=== PATIENT | female | born 1960 | race Caucasian/White ===

== ENCOUNTER 2023-03-04 07:52 | Outpatient (OUT) | payer MEDICARE, SELFPAY ==
[2023-03-04 08:44] LABS: Basophils Absolute Auto 0.1 10^3/uL (0.0-0.1); Basophils Percent Auto 1.3 % (0.2-2.0); Eosinophils Absolute Auto 0.2 10^3/uL (0.0-0.7); Eosinophils Percent Auto 3.6 % (0.9-7.0); Hematocrit 41.7 % (36.0-48.0); Hemoglobin 13.8 g/dL (12.0-16.0); Immature Granulocytes Abs Auto 0.02 10^3/uL (0.00-0.03); Immature Granulocytes Pct Auto 0.3 % (0.0-0.5); Lymphocytes Absolute Auto 1.5 10^3/uL (1.2-3.8); Lymphocytes Percent Auto 24.1 % (20.5-60.0); Mean Corpuscular HGB Conc 33.1 g/dL (29.9-35.2); Mean Corpuscular Hemoglobin 29.2 pg (26.7-34.0); Mean Corpuscular Volume 88.2 fL (81.0-99.0); Mean Platelet Volume 9.5 fL (9.5-13.5); Monocytes Absolute Auto 0.6 10^3/uL (0.3-0.8); Monocytes Percent Auto 9.2 % (1.7-12.0); Neutrophils Absolute Auto 3.7 10^3/uL (1.4-6.5); Neutrophils Percent Auto 61.5 % (43.0-75.0); Platelet Count 306 10^3/uL (150-450); Red Blood Count 4.73 10^6/uL (4.20-5.40); Red Cell Distribution Width 12.2 % (11.0-15.0); White Blood Count 6.1 10^3/uL (4.0-11.0)
== END 2023-03-04 07:53 | disposition home or self-care (01) ==
LOC: PST 07:53
PROVIDERS: Family Provider Family Medicine; PCP Family Medicine; Visit Provider Otolaryngology
DX: Z01.812 Encounter for preprocedural laboratory examination (principal); H65.92 Unspecified nonsuppurative otitis media, left ear
CPT/HCPCS: 85025

== ENCOUNTER 2023-03-08 07:24 | Day surgery (SDC) | payer MEDICARE, SELFPAY ==
[2023-03-04 08:28] VITALS: BP 130/79; PULSE 69; RESP 16; TEMP 36.3; O2SAT 96; BMI 31.7
[2023-03-08] VITALS (13 sets, daily range): BP systolic 115–150; BP diastolic 66–89; PULSE 64–103; RESP 10–18; TEMP 36.1; O2SAT 93–100; BMI 30.8
--- NOTE | 2023-03-08 | OP_ITS ---
OPERATION DATE: ??03/08/2023 PRIMARY CARE PHYSICIAN:? Dr. Edwards SURGEON:? Caterina Herrera M.D. PREOPERATIVE DIAGNOSIS:? Left eustachian tube dysfunction. POSTOPERATIVE DIAGNOSIS:? Left eustachian tube dysfunction. PROCEDURE:? Left myringotomy and tube with microdissection placement of a T- tube. ANESTHESIA:? General LMA. COMPLICATIONS:? None. FINDINGS:? Left serous effusion. INDICATIONS: This 62-year-old woman presented with otitis media with effusion, unresponsive to aggressive medical management.? PROCEDURE:? Patient identified in the holding area and taken back to the OR where she was placed in the supine position.? After induction of general anesthesia by LMA, the left ear was approached with the otomicroscope.? Cerumen was cleaned from the canal using a cerumen curette.? An anterior radial myringotomy was performed.? A modified Adrien?s T-tube was folded, inserted through the myringotomy and opened in the middle ear using microdissection.? The patient was then awakened and taken to the recovery room in good condition. BRIJESH
[2023-03-08] MEDS: LACTATED RINGER'S SOLUTION 1,000 ML 50 ML IV (08:01)
[2023-03-08] MEDS: CIPROFLOXACIN HCL/DEXAMETH 0.3%/0.1% OTIC SUSP 150 DROP/7.5 ML BOTTLE OT (08:59)
== END 2023-03-08 10:10 | disposition home or self-care (01) ==
PROVIDERS: Family Provider Family Medicine; PCP Family Medicine; Visit Provider Otolaryngology
PROC: (CPT 69436; principal; 2023-03-08 08:30)
DX: H69.82 Other specified disorders of Eustachian tube, left ear (principal); H90.5 Unspecified sensorineural hearing loss; M16.0 Bilateral primary osteoarthritis of hip; E66.9 Obesity, unspecified; E89.0 Postprocedural hypothyroidism; E55.9 Vitamin D deficiency, unspecified; Z85.3 Personal history of malignant neoplasm of breast; I10 Essential (primary) hypertension; K21.9 Gastro-esophageal reflux disease without esophagitis; Z90.710 Acquired absence of both cervix and uterus; Z79.82 Long term (current) use of aspirin; Z79.899 Other long term (current) drug therapy; H65.92 Unspecified nonsuppurative otitis media, left ear
CPT/HCPCS: 69436; 36415; J2704